=== PATIENT | male | born 1955 | race Caucasian/White ===

== ENCOUNTER 2018-10-30 19:21 | Observation (INO) ==
[2018-10-30] MEDS ORDERED: Isovue-370 500 ML INFUS..BTL IV ONE (20:47)
--- NOTE | 2018-10-30 20:54 | Emergency Department Note ---
Disposition Clinical Impression: Chest pain, Acute pericardial effusion Disposition: Admitted As Inpatient Condition: Undetermined Time of Disposition: 22:52 Chest Pain HPI - General Chief Complaint: ED Chest Pain Stated Complaint: chest pain Time Seen by Provider: 10/30/18 20:16 Source: patient Mode of arrival: ambulatory Limitations: no limitations Vital Signs Reviewed: Yes Nursing Notes Reviewed: Yes - History of Present Illness HPI Narrative: 63-year-old male with history of hypertension, arrives to the emergency department with complaint of chest pain. He describes as a pleuritic in nature chest pain really short of breath. He states it started suddenly at noon. He states that anytime he moves he comes complaining of left-sided chest discomfort. Radiates into bilateral shoulders as well. The patient has no previous history of COPD. Patient is complaining of unilateral leg swelling in the left lower extremity secondary to injury to the left leg. He is unsure what the injury was. He states that his progressively worsened with the swelling is roughly every. No previous history of DVT or PE. No hemoptysis. No other complaints at this time. Severity scale (1-10): 9 - Related Data Home Medications Medication Instructions Recorded Confirmed Clopidogrel Bisulfate [Plavix] 75 mg PO DAILY 05/08/17 05/21/18 Empagliflozin/Linagliptin 1 tab PO DAILY 05/08/17 05/21/18 [Glyxambi 25 mg-5 mg Tablet] Glimepiride [Amaryl] 4 mg PO DAILY 05/08/17 05/21/18 Metformin HCl [Metformin HCl ER] 500 mg PO DAILY 05/08/17 05/21/18 Metoprolol Succinate 50 mg PO DAILY 05/08/17 05/21/18 Rosuvastatin Calcium [Crestor] 40 mg PO DAILY 05/08/17 05/21/18 Sildenafil Citrate [Revatio] 20 mg PO DAILY PRN 05/08/17 05/21/18 Loperamide [Imodium] 2 mg PO BID PRN 10/13/17 05/21/18 Previous Rx's Medication Instructions Recorded Tamsulosin [Flomax] 0.4 mg PO BID PRN 30 Days #60 05/21/18 capsule Allergies Allergy/AdvReac Type Severity Reaction Status Date / Time No Known Allergies Allergy Verified 05/21/18 14:00 All systems ED: reviewed and negative except as stated. Constitutional: Denies: fever, chills, weakness ENT ED: Denies: dysphagia Cardiovascular: Reports: chest pain, dyspnea on exertion, edema (LLE). Denies: orthopnea Respiratory: Reports: dyspnea. Denies: cough, wheezes, sputum production Gastrointestinal: Denies: abdominal pain, nausea, vomiting Genitourinary: Denies: urgency, dysuria Musculoskeletal: Denies: back pain Integumentary: Denies: rash Neurological: Denies: headache Chest Pain PMH - Past Medical History Medical history: Reports: CVA, hyperlipidemia Surgical history: Reports: non-contributory - Social History Smoking Status: Current every day smoker Alcohol use: Reports: rarely Drug use: Reports: none Physical Exam - General Limitations: no limitations General appearance: alert, in distress (secondary to chest pain and mild respiratory distress) - Head Head exam: atraumatic, normocephalic, normal inspection - Eye Eye exam: Present: normal appearance, PERRL, EOMI - ENT ENT exam: normal exam, normal oropharynx, mucous membranes moist - Neck Neck exam: Present: normal inspection, full ROM, trachea midline - Chest Chest inspection: Present: normal inspection, symmetric chest wall rise - Respiratory Respiratory exam: Present: other (Poor air movement in bilateral lung love) - Cardiovascular Cardiovascular exam: Present: regular rate, normal rhythm, normal heart sounds - Abdominal Exam Abdominal exam: Present: soft, Non-Tender. Absent: tenderness, distention, guarding, rebound, rigidity - Extremities Exam Extremities exam: Present: full ROM, tenderness (LLE), other (Swelling noted in left lower extremity. Tenderness to palpation. Roughly double the size of right lower extremity. Patient has a small abrasion to left medial calf.) - Neurological Exam Neurological exam: Present: alert, oriented X3, CN II-XII intact - Skin Skin exam: Present: warm, dry, intact, normal color Course Vital Signs Temperature 98.8 F 10/30/18 19:25 Pulse Rate 98 10/30/18 19:25 Respiratory Rate 20 10/30/18 19:25 Blood Pressure 127/78 10/30/18 19:25 O2 Sat by Pulse Oximetry 94 10/30/18 19:25 Temperature 98.8 F 10/30/18 19:25 Pulse Rate 90 10/30/18 20:56 Respiratory Rate 22 10/30/18 20:56 Blood Pressure 114/68 10/30/18 20:56 O2 Sat by Pulse Oximetry 91 10/30/18 20:56 Oxygen Delivery Oxygen Delivery Room Air Chest Pain - MDM Narrative Medical decision making narrative: Patient's evaluation in the emergency department demonstrates findings consistent with a small moderate-sized pericardial effusion. The patient given streets no tendon on on CTA. The patient's vital signs rate stable. The patient's pain has been difficult to control initially in the emergency Depa rtment we will admit the patient to the hospital for further workup and care to include likely echocardiogram and evaluation for cardiology. Cardiology consultation was placed with Erik by myself. The patient will be admitted to the hospital. Patient agrees to plan of care. No further questions or concerns noted at this time. - Lab Data Lab results reviewed: Yes I reviewed the patient's lab results. Result diagrams: 10/30/18 20:52 10/30/18 20:52 Lab Results 10/30/18 10/30/18 10/30/18 Range/Units 20:52 20:52 20:52 WBC 15.2 H (4.3-11.1) K/mcL RBC 4.51 (4.19-5.50) M/mcL Hgb 13.6 (12.9-16.9) g/dL Hct 41.3 (37.5-50.1) % MCV 91.6 (83.0-100.0) fL MCH 30.2 (28.0-33.3) pg MCHC 32.9 (31.6-35.5) g/dL RDW 14.6 H (11.5-14.5) % Plt Count 211 (140-400) K/mcL MPV 10.5 (9.4-12.4) fL Immature Gran % 0.3 (0-4) % Seg Neutrophils % 79.1 % Lymphocytes % 10.8 % Monocytes % 8.8 % Eosinophils % 0.5 % Basophils % 0.5 % Neutrophils # 12.0 H (1.6-8.9) K/mcL Lymphocytes # 1.6 (0.6-4.6) K/mcL Monocytes # 1.3 (0.0-1.3) K/mcL Eosinophils # 0.1 (0.0-0.6) K/mcL Basophils # 0.1 (0.0-0.2) K/mcL PT 11.3 (9.4-12.1) Seconds INR 1.0 APTT 29.4 (26.0-36.0) Seconds Sodium 134 L (136-145) mEq/L Potassium 4.3 (3.5-5.1) mEq/L Chloride 104 (98-107) mEq/L Carbon Dioxide 22 L (23-29) mEq/L BUN 23 (8-23) mg/dL Creatinine 1.02 (0.70-1.30) mg/dL Est GFR ( Amer) > 60 (> 60) Est GFR (Non-Af Amer) > 60 (> 60) BUN/Creatinine Ratio 23 (6-26) Glucose 135 H (70-105) mg/dL Calculated Osmolality 284 (280-300) Calcium 9.9 (8.6-10.3) mg/dL Troponin I < 0.03 (< 0.04) ng/mL - Radiology Data Radiology results reviewed: Yes I reviewed the patient's radiology results. Chest X-Ray 10/30/18 20:16 IMPRESSION: No acute process. D/ / Ramiro Viera MD / Ramiro Viera MD Interpreting Provider: Ramiro Viera MD Chest CTA 10/30/18 20:47 IMPRESSION: 1. No evidence of pulmonary embolism. 2. Small to moderate-sized pericardial effusion. 3. Coronary artery atherosclerotic vascular disease. 4. Moderate atherosclerotic vascular disease of the descending thoracic aorta. D/ / Sai Roe MD / Sai Roe MD Interpreting Provider: Sai Roe MD - EKG Data EKG attestation: Yes I reviewed and interpreted this EKG. EKG results narrative: Heart rate 95 beats for minute. Normal sinus rhythm. No ST elevation or ST depression noted. Right bundle branch block that is similar in EKG morphology to EKG from 04/09/2015. No acute changes noted. Attestation Statement - Attestation Attestation: Phillip Hodges, examined this patient and my medical decision-making was reviewed with the E [employer]/PA/Advanced Practice Nurse/Resident Physician. I agree with the documented findings, disposition and treatment plan as described except to the extent set forth below. 63-year-old male presents emergency Department with concerns of chest pain. Chest pain is been present over the past 7 hours prior to arrival. Patient s tates his chest pain is left-sided, radiates to his bilateral shoulders. He denies fever, chills, nausea, vomiting. It started acutely pain is pleuritic in nature. CT of the chest showed no PE however it did show a pleural effusion. Laboratory evaluation showed a mild leukocytosis but otherwise did not show significant abnormality. Patient comfortable with the plan for admission to the hospital for further care and evaluation and investigation into his pleural effusion and acute onset chest pain.
[2018-10-30 21:16] LABS: Basophils # 0.1 K/mcL (0.0-0.2); Basophils % 0.5 %; Eosinophils # 0.1 K/mcL (0.0-0.6); Eosinophils % 0.5 %; Hematocrit 41.3 % (37.5-50.1); Hemoglobin 13.6 g/dL (12.9-16.9); Immature Granulocytes % 0.3 % (0-4); Lymphocytes # 1.6 K/mcL (0.6-4.6); Lymphocytes % 10.8 %; Mean Corpuscular HGB Conc 32.9 g/dL (31.6-35.5); Mean Corpuscular Hemoglobin 30.2 pg (28.0-33.3); Mean Corpuscular Volume 91.6 fL (83.0-100.0); Mean Platelet Volume 10.5 fL (9.4-12.4); Monocytes # 1.3 K/mcL (0.0-1.3); Monocytes % 8.8 %; Platelet Count 211 K/mcL (140-400); Red Blood Count 4.51 M/mcL (4.19-5.50); Red Cell Distribution Width 14.6 % (11.5-14.5); Segmented Neutrophils % 79.1 %
[2018-10-30 21:23] LABS: Prothrombin Time 11.3 Seconds (9.4-12.1)
[2018-10-30 21:26] LABS: Activated Partial Thrombo Time 29.4 Seconds (26.0-36.0)
[2018-10-30] MEDS ORDERED: *HR* FentaNYL (PF) 100 MCG/2 ML VIAL IVP ONE (21:34)
[2018-10-30] MEDS ORDERED: Nitroglycerin 0.4 MG TAB.SUBL SL PRN (21:34)
[2018-10-30 21:38] LABS: BUN/Creatinine Ratio 23 (6-26); Blood Urea Nitrogen 23 mg/dL (8-23); Calcium 9.9 mg/dL (8.6-10.3); Carbon Dioxide 22 mEq/L (23-29); Chloride 104 mEq/L (98-107); Glucose 135 mg/dL (70-105); Osmolality,Calculated 284 (280-300); Potassium 4.3 mEq/L (3.5-5.1); Sodium 134 mEq/L (136-145); Troponin I < 0.03 ng/mL (< 0.04); eGFR For Non-African Americans > 60 (> 60)
[2018-10-30] MEDS ORDERED: Aspirin 325 MG TABLET PO ONE (22:42)
--- NOTE | 2018-10-30 23:30 | Internal Med History&Physical ---
<Eli Elizabeth - Last Filed: 10/31/18 05:31> Date of Encounter: 10/31/18 Time of Encounter: 23:19 Internal Medicine - H&P: HPI Chief complaint: chest pain Admitted From: Home Plans for Post Hospital Care: Home History of present illness: Mr. Shultz is a 63 year old male with past medical history CVA, hyperlipidemia, diabetes mellitus, and prostate cancer who presents to the emergency department with complaints of chest pain 1 day. His chest pain began suddenly around noon on day of presentation. Chest pain is centrally located and radiates through his back to both shoulders. He has never experienced this type of chest pain in the past, describes it as feeling like somebody is "beating on" him. Admits to dyspnea.Chest pain is pleuritic and worse with coughing, there is some relief when sitting upright as opposed to reclined position. He denies previous history of heart attack or left heart catheterization. He denies constitutional symptoms or recent viral-like respiratory illness. He has a cough at baseline and is unchanged. He denies heart palpitations, nausea, vomiting, abdominal pain, diarrhea, constipation, difficulty urinating. On arrival to the ED the patient was afebrile, hemodynamically stable, with respiratory rate of 20 and saturating 94% on room air. Initial lab work notable for WBC 15.2 and negative troponin 1. Chest x-ray negative for acute focal process, no effusion or pneumothorax. Chest CTA showed small to moderate sized pericardial effusion, negative for evidence of pulmonary embolism. While in the emergency department he received aspirin 325 mg 1. Per ED report, cardiology has been consulted. The patient has been admitted to the hospitalist service for further evaluation and management. Past Med Surg Social Fam HX - Past Medical History Medical history: CVA, hyperlipidemia - Past Surgical History Surgical History: non-contributory - Social History Smoking Status: Current every day smoker Smokeless Tobacco Status: No Alcohol use: rarely Drug use: none Internal Medicine - H&P: Meds Clopidogrel Bisulfate [Plavix] 75 mg PO DAILY 05/08/17 [History] Empagliflozin/Linagliptin [Glyxambi 25 mg-5 mg Tablet] 1 tab PO DAILY 05/08/17 [History] Glimepiride [Amaryl] 4 mg PO DAILY 05/08/17 [History] Metformin HCl [Metformin HCl ER] 500 mg PO DAILY 05/08/17 [History] Metoprolol Succinate 50 mg PO DAILY 05/08/17 [History] Rosuvastatin Calcium [Crestor] 40 mg PO DAILY 05/08/17 [History] Sildenafil Citrate [Revatio] 20 mg PO DAILY PRN 05/08/17 [History] Loperamide [Imodium] 2 mg PO BID PRN 10/13/17 [History] Tamsulosin [Flomax] 0.4 mg PO BID PRN 30 Days #60 capsule 05/21/18 [Rx] Allergy/AdvReac Type Severity Reaction Status Date / Time No Known Allergies Allergy Verified 05/21/18 14:00 All Systems PM: A 10-system review of systems was performed and is negative for pertinent findings except as documented above in the HPI. - Constitutional Constitutional: no chills, no fever(s) - EENT Nose, mouth and throat: no nasal discharge, no sore throat - Cardiovascular Cardiovascular ROS IM: chest pain, dyspnea, edema (LLE, chronic d/t injury), no irregular heart rhythm, no palpitations - Respiratory Respiratory: cough, dyspnea, pain on inspiration, pain with cough, no hemoptysis, no wheezing, no chest congestion - Gastrointestinal Gastrointestinal: no abdominal pain, no constipation, no diarrhea, no nausea, no vomiting - Genitourinary Genitourinary ROS male: no difficulty urinating, no dysuria - Constitutional Vitals: Temp Pulse Resp BP Pulse Ox 98.8 F 96 20 115/74 94 10/30/18 19:25 10/30/18 23:07 10/30/18 23:07 10/30/18 23:07 10/30/18 23:07 General appearance: Present: mild distress, A&O X 3, pleasant, answers questions appropriately Exam: . - Head Head exam: Present: atraumatic, normocephalic - Eye Eye exam: Present: EOMI, PERRL, sclera anicteric Pupils: Present: PERRL - Neck Neck exam general surgery: Present: supple, trachea midline - Respiratory Respiratory exam: Present: decreased breath sounds, rales (bibasilar), tachypnea. Absent: chest wall tenderness, rhonchi, wheezes Additional comments: mild conversational dyspnea - Cardiovascular Cardiovascular exam: Present: distant heart sounds, RRR, +S1, +S2 Additional comments: no friction rub auscultated - GI/Abdominal GI/Abdominal exam: Present: normal bowel sounds, soft. Absent: tenderness - Extremities Exam Extremities exam: Present: warm. Absent: calf tenderness, cyanotic, tenderness Additional comments: Chronic LLE edema, non-pitting - Neurological Exam Neurological exam: Present: alert, CN II-XII intact, oriented X3, no focal deficits - Skin Skin exam: Present: dry, intact, warm Internal Med - H&P Results - Labs CBC & Chem 7: 10/31/18 03:06 10/31/18 03:06 Labs: Short CBC 10/30/18 Range/Units 20:52 WBC 15.2 H (4.3-11.1) K/mcL Hgb 13.6 (12.9-16.9) g/dL Hct 41.3 (37.5-50.1) % Plt Count 211 (140-400) K/mcL Neutrophils # 12.0 H (1.6-8.9) K/mcL BMP 10/30/18 20:52 Sodium 134 L Potassium 4.3 Chloride 104 Carbon Dioxide 22 L BUN 23 Creatinine 1.02 Glucose 135 H Calcium 9.9 Cardiac Enzymes 10/30/18 Range/Units 20:52 Troponin I < 0.03 (< 0.04) ng/mL - Impressions ITS Impressions Chest X-Ray 10/30/18 20:16 IMPRESSION: No acute process. D/ / Ramiro Viera MD / Ramiro Viera MD Interpreting Provider: Ramiro Viera MD Chest CTA 10/30/18 20:47 IMPRESSION: 1. No evidence of pulmonary embolism. 2. Small to moderate-sized pericardial effusion. 3. Coronary artery atherosclerotic vascular disease. 4. Moderate atherosclerotic vascular disease of the descending thoracic aorta. D/ / Sai Roe MD / Sai Roe MD Interpreting Provider: Sai Roe MD - Assessment and plan (1) Acute pericardial effusion Current Visit: Yes Status: Acute Assessment and plan: Hemodynamically stable Etiology: Unclear, possibly related to known malignancy Chest CTA showed small to moderate sized pericardial effusion, no evidence for pulmonary embolism or pleural effusion Cardiology consult placed by ED Echocardiogram pending Continuous cardiac monitoring Cardiology recommendations appreciated (2) Chest pain Current Visit: Yes Status: Acute Assessment and plan: Most likely due to acute pericardial effusion as above Received 325 mg ASA on arrival CTA chest findings as above CXR shows no acute cardiopulmonary processes Morphine 2 mg Q4H PRN Initial troponin negative, will trend 2 Continuous cardiac monitoring Anticipate chest pain will improve with treatment of the pericardial effusion Qualifiers: Chest pain type: chest pain on breathing Qualified Code(s): R07.1 - Chest pain on breathing; R07.81 - Pleurodynia (3) Leukocytosis Current Visit: Yes Status: Acute Assessment and plan: WBC 15.2 Suspect d/t acute stress reaction secondary to acute pericardial effusion Afebrile, no obvious or suspected source of infection Monitor with morning CBC Qualifiers: Leukocytosis type: unspecified Qualified Code(s): D72.829 - Elevated white blood cell count, unspecified (4) Hyperlipidemia Current Visit: Yes Status: Acute Assessment and plan: Continue home dose Crestor Qualifiers: Hyperlipidemia type: unspecified Qualified Code(s): E78.5 - Hyperlipidemia, unspecified (5) Diabetes mellitus Current Visit: Yes Status: Acute Assessment and plan: Low dose sliding scale insulin Diabetic diet Qualifiers: Diabetes mellitus type: type 2 Diabetes mellitus custodial insulin use: without custodial use Diabetes mellitus complication status: with neurologic complications Diabetes mellitus complication detail: with unspecified neuropathy Qualified Code(s): E11.40 - Type 2 diabetes mellitus with diabetic neuropathy, unspecified (6) Tobacco abuse Current Visit: Yes Status: Acute Assessment and plan: Current tobacco smoker Cessation strongly advised (7) Prostate cancer Current Visit: No Status: Acute Assessment and plan: Very high risk stage II prostate adenocarcinoma--radiation therapy completed 2016; docetaxel completed January 2018; currently receiving Lupron injections Followed by Dr. Stevens and Dr. Duff at the [facility] Continue management as outpatient (8) DVT prophylaxis Current Visit: Yes Status: Acute Assessment and plan: subcutaneous heparin - Time Spent With Patient Total time spent is greater than 50% in coordination of care (as documented) at patient's floor/unit and/or counseling patient: <Renae Pelaez - Last Filed: 10/31/18 08:23> Date of Encounter: 10/30/18 Internal Medicine - H&P: HPI History of present illness: Mr. Shultz is a 63 year old male All Systems PM: A 10-system review of systems was performed and is negative for pertinent findings except as documented above in the HPI. - Constitutional Vitals: Temp Pulse Resp BP Pulse Ox 98.1 F 89 19 119/77 93 10/31/18 07:55 10/31/18 07:55 10/31/18 07:55 10/31/18 07:55 10/31/18 07:55 Internal Med - H&P Results - Labs CBC & Chem 7: 10/31/18 03:06 10/31/18 03:06 Labs: Short CBC 10/30/18 10/31/18 Range/Units 20:52 03:06 WBC 15.2 H 12.1 H (4.3-11.1) K/mcL Hgb 13.6 12.5 L (12.9-16.9) g/dL Hct 41.3 38.9 (37.5-50.1) % Plt Count 211 193 (140-400) K/mcL Neutrophils # 12.0 H 8.9 (1.6-8.9) K/mcL BMP 10/30/18 10/31/18 20:52 03:06 Sodium 134 L 134 L Potassium 4.3 4.5 Chloride 104 105 Carbon Dioxide 22 L 22 L BUN 23 21 Creatinine 1.02 1.05 Glucose 135 H 133 H Calcium 9.9 9.9 Cardiac Enzymes 10/30/18 10/31/18 Range/Units 20:52 03:06 Troponin I < 0.03 < 0.03 (< 0.04) ng/mL - Impressions ITS Impressions Chest X-Ray 10/30/18 20:16 IMPRESSION: No acute process. D/ / Ramiro Viera MD / Ramiro Viera MD Interpreting Provider: Ramiro Viera MD Chest CTA 10/30/18 20:47 IMPRESSION: 1. No evidence of pulmonary embolism. 2. Small to moderate-sized pericardial effusion. 3. Coronary artery atherosclerotic vascular disease. 4. Moderate atherosclerotic vascular disease of the descending thoracic aorta. D/ / Sai Roe MD / Sai Roe MD Interpreting Provider: Sai Roe MD - Time Spent With Patient Total time spent is greater than 50% in coordination of care (as documented) at patient's floor/unit and/or counseling patient: - Attending Attestation I performed a history and physical examination of the patient and discussed his management with the resident. I reviewed the resident's note and agree with the assessment and plan of care.
[2018-10-30] MEDS ORDERED: Naloxone 0.4 MG/ML INJ IVP PRN (23:33)
[2018-10-30] MEDS ORDERED: Dextrose Gel 15 GM/37.5 ML TUBE PO PRN ×2 (23:37)
[2018-10-30] MEDS ORDERED: *HR* Dextrose 50 % in Water (Syg) 50 ML SYRINGE IVP PRN (23:37)
[2018-10-30] MEDS ORDERED: D5% in Water 1,000 ML IVC PRN (23:37)
[2018-10-31] MEDS ORDERED: Ipratropium/Albuterol Neb 3 ML IH PRN (00:39)
[2018-10-31] MEDS ORDERED: *HR* Morphine 2 MG/ML SYRINGE IVP PRN (01:38)
[2018-10-31 03:36] LABS: Basophils # 0.1 K/mcL (0.0-0.2); Basophils % 0.4 %; Eosinophils % 0.2 %; Hematocrit 38.9 % (37.5-50.1); Hemoglobin 12.5 g/dL (12.9-16.9); Immature Granulocytes % 0.5 % (0-4); Lymphocytes # 1.8 K/mcL (0.6-4.6); Lymphocytes % 14.5 %; Mean Corpuscular HGB Conc 32.1 g/dL (31.6-35.5); Mean Corpuscular Hemoglobin 29.6 pg (28.0-33.3); Mean Corpuscular Volume 92.2 fL (83.0-100.0); Mean Platelet Volume 10.5 fL (9.4-12.4); Monocytes # 1.3 K/mcL (0.0-1.3); Neutrophils # 8.9 K/mcL (1.6-8.9); Platelet Count 193 K/mcL (140-400); Red Blood Count 4.22 M/mcL (4.19-5.50); Red Cell Distribution Width 14.7 % (11.5-14.5); Segmented Neutrophils % 73.4 %
[2018-10-31] MEDS ORDERED: Furosemide 20 MG/2 ML VIAL IVP ONE (03:43)
[2018-10-31 03:51] LABS: BUN/Creatinine Ratio 20 (6-26); Blood Urea Nitrogen 21 mg/dL (8-23); Calcium 9.9 mg/dL (8.6-10.3); Carbon Dioxide 22 mEq/L (23-29); Chloride 105 mEq/L (98-107); Glucose 133 mg/dL (70-105); Osmolality,Calculated 283 (280-300); Potassium 4.5 mEq/L (3.5-5.1); Sodium 134 mEq/L (136-145); eGFR For Non-African Americans > 60 (> 60)
[2018-10-31] MEDS: *HR* Heparin 5,000 UNIT/ML VIAL SQ SCH ×2 (04:52→17:18)
[2018-10-31] MEDS: Insulin LISPRO 300 UNITS/3 ML VIAL SQ SCH ×3 (08:05→17:12)
[2018-10-31] MEDS: Metoprolol XL (24 HR) Succ 25 MG TAB.ER.24H PO SCH (08:19)
--- NOTE | 2018-10-31 09:52 | Internal Med Progress Note ---
Hospitalist Progress Note - Encounter Date of Encounter: 10/31/18 Time of Encounter: 09:51 - Subjective Interval History: Seen and examined at bedside- Complains of sharp CP when sitting up and coughing - does not appear to be in any resp distress - Exam Vitals: Temp Pulse Resp BP Pulse Ox 98.1 F 89 19 119/77 94 10/31/18 07:55 10/31/18 07:55 10/31/18 07:55 10/31/18 07:55 10/31/18 08:19 Exam: General: Alert and oriented 3 lying in bed in no acute distress Skin:Normal color, no rash, no lesions. HEENT:EOM, pupils equal, round and reactive. Cardiovascular:Normal S1 & S2, no rubs, murmurs or gallops. No JVD. Pulse regular. Lungs: Diffuse Rhonchi appreciated Abdomen:Soft, non-tender, no rigidity. Extremities: 2+ pitting edema up to the ankles bilaterally Neurological:Normal cognition and motor skills. Pulses:Carotid and radial pulses normal +2. 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 - trop negative x3 EKG with no ST T wave abnormality Cardiology consulted NSAIDs for pain Incentive spirometry (3) DVT prophylaxis Current Visit: Yes Status: Acute (4) Diabetes mellitus Current Visit: Yes Status: Acute Assessment and Plan: 1 accucheck AC/HS SSI (5) Prostate cancer Current Visit: No Status: Chronic Assessment and Plan: Oncology as outpatient - consult as needed - Time Spent with Patient Total time spent is greater than 50% in coordination of care (as documented) at patient's floor/unit and/or counseling patient: Internal Medicine: Result - Labs CBC & Chem 7: 10/31/18 03:06 10/31/18 03:06 Labs: Short CBC 10/30/18 10/31/18 Range/Units 20:52 03:06 WBC 15.2 H 12.1 H (4.3-11.1) K/mcL Hgb 13.6 12.5 L (12.9-16.9) g/dL Hct 41.3 38.9 (37.5-50.1) % Plt Count 211 193 (140-400) K/mcL Neutrophils # 12.0 H 8.9 (1.6-8.9) K/mcL BMP 10/30/18 10/31/18 20:52 03:06 Sodium 134 L 134 L Potassium 4.3 4.5 Chloride 104 105 Carbon Dioxide 22 L 22 L BUN 23 21 Creatinine 1.02 1.05 Glucose 135 H 133 H Calcium 9.9 9.9 Cardiac Enzymes 10/30/18 10/31/18 10/31/18 Range/Units 20:52 03:06 08:16 Troponin I < 0.03 < 0.03 < 0.03 (< 0.04) ng/mL - ABG Interpretation ABG results: PT/INR, D-dimer PT 11.3 Seconds (9.4-12.1) 10/30/18 20:52 - Impressions Impressions Chest X-Ray 10/30/18 20:16 IMPRESSION: No acute process. D/ / Ramiro Viera MD / Ramiro Viera MD Interpreting Provider: Ramiro Viera MD Chest CTA 10/30/18 20:47 IMPRESSION: 1. No evidence of pulmonary embolism. 2. Small to moderate-sized pericardial effusion. 3. Coronary artery atherosclerotic vascular disease. 4. Moderate atherosclerotic vascular disease of the descending thoracic aorta. 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
--- NOTE | 2018-10-31 11:34 | Cardiology Consult Note ---
Date of Encounter: 10/31/18 Time of Encounter: 11:32 Assessment and Plan (1) Chest pain Current Visit: Yes Status: Acute Chest pain most consistent with musculoskeletal etiology, reproducible, initiated during physical exertion at work, pt is at low cardiovascular risk for hospital discharge. Qualifiers: Chest pain type: intercostal pain Qualified Code(s): R07.82 - Intercostal pain (2) Acute pericardial effusion Current Visit: Yes Status: Acute not hemodynamically siginificant, does not appear to be contributing to chest discomfort, would continue to observe, follow in our office in two to three weeks with repeat echo at that time. (3) Prostate cancer Current Visit: No Status: Chronic Has completed tx., following with Heme onc. (4) Tobacco abuse Current Visit: Yes Status: Acute strongly encourage smoking cessation. Discussion w patient/family: The assessment and plan as outlined above was discussed with the patient and/or family members who expressed understanding and agreement. All questions were answered. Thank you for involving us in the care of your patient. Please call with any questions. History of Present Illness Consult date: 10/31/18 Requesting physician: Renae Pelaez Consult reason: Chest pain Chief complaint: chest pain History of present illness: Mr. Shultz is a 63 year old male who presented to the ER with complaints of sharp, stabbing chest pain, under left breast, starting after replacing water pump in cement truck, started with mild discomfort with movement, rapidly progressed to severe 8/10 sharp stabbing pain, worse with movement, deep inspiration and cough. Pain was not associated with shortness of breath, nausea or diaphoresis. He could control the pain by holding his breath. He has had some improvement since admission. He underwent CT scan to evaluate for PE, found to have a pericardial effusion on CT. He denies symptoms of recent upper respiratory tract infection, blunt trauma, or febrile illness, He has recently completed chemo tx for prostate cancer. 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 Past Med Surg Social Fam HX - Past Medical History Medical history: CVA, hyperlipidemia Psychiatric history: no psych history - Past Surgical History Surgical History: non-contributory - Social History Smoking Status: Current every day smoker Smokeless Tobacco Status: No Alcohol use: rarely Drug use: none Medications and Allergies Clopidogrel Bisulfate [Plavix] 75 mg PO DAILY 05/08/17 [History] Empagliflozin/Linagliptin [Glyxambi 25 mg-5 mg Tablet] 1 tab PO DAILY 05/08/17 [History] Glimepiride [Amaryl] 4 mg PO DAILY 05/08/17 [History] Metformin HCl [Metformin HCl ER] 500 mg PO DAILY 05/08/17 [History] Metoprolol Succinate 50 mg PO DAILY 05/08/17 [History] Rosuvastatin Calcium [Crestor] 40 mg PO DAILY 05/08/17 [History] Sildenafil Citrate [Revatio] 20 mg PO DAILY PRN 05/08/17 [History] Loperamide [Imodium] 2 mg PO BID PRN 10/13/17 [History] Tamsulosin [Flomax] 0.4 mg PO BID PRN 30 Days #60 capsule 05/21/18 [Rx] Allergy/AdvReac Type Severity Reaction Status Date / Time No Known Allergies Allergy Verified 05/21/18 14:00 All Systems Review: The remainder of the systems were reviewed and are negative - Constitutional Constitutional: anorexia, fatigue, lethargy - Cardiovascular Cardiovascular: chest pain with exertion, dyspnea on exertion, lightheadedness, palpitations - Respiratory Respiratory: cough, dyspnea - Gastrointestinal Gastrointestinal: nausea - Genitourinary Genitourinary: nocturia Physical Examination Vital Signs, Last 4 Hours Temp Pulse Resp BP Pulse Ox 10/31/18 08:19 94 10/31/18 07:55 98.1 F 89 19 119/77 93 General: Conversant HEENT: Atraumatic, Normocephaly Neck: No JVD Cardiac: Reg Rate and Rhythm, Normal S1 and S2, No Murmur, Other (no clicks, rubs or rumbles. ) Lungs: Other (Breath sounds decreased with course scattered rhonchi, ) Results 10/31/18 03:06 10/31/18 03:06 Lab Results 10/30/18 10/30/18 10/30/18 20:52 20:52 20:52 WBC 15.2 H Hgb 13.6 Hct 41.3 Plt Count 211 INR 1.0 APTT 29.4 Sodium 134 L Potassium 4.3 Chloride 104 Carbon Dioxide 22 L BUN 23 Creatinine 1.02 Glucose 135 H Calcium 9.9 Troponin I < 0.03 B-Natriuretic Peptide 10/31/18 10/31/18 10/31/18 03:06 03:06 03:06 WBC 12.1 H Hgb 12.5 L Hct 38.9 Plt Count 193 INR APTT Sodium 134 L Potassium 4.5 Chloride 105 Carbon Dioxide 22 L BUN 21 Creatinine 1.05 Glucose 133 H Calcium 9.9 Troponin I < 0.03 B-Natriuretic Peptide 10/31/18 10/31/18 03:06 08:16 WBC Hgb Hct Plt Count INR APTT Sodium Potassium Chloride Carbon Dioxide BUN Creatinine Glucose Calcium Troponin I < 0.03 B-Natriuretic Peptide 26 - EKG Interpretation EKG results cardiology: personally reviewed Consult Discharge Plan - Plan Referrals: Rafat Dietz Jr, MD [Primary Care Provider] -
[2018-10-31] MEDS: Ibuprofen 600 MG TABLET PO SCH (17:19)
[2018-10-31] MEDS ORDERED: Insulin LISPRO 300 UNITS/3 ML VIAL SQ SCH (21:00)
[2018-11-01] MEDS: Ibuprofen 600 MG TABLET PO SCH ×2 (00:33→08:52)
[2018-11-01] MEDS: *HR* Heparin 5,000 UNIT/ML VIAL SQ SCH (06:28)
[2018-11-01 06:57] LABS: Basophils # 0.1 K/mcL (0.0-0.2); Basophils % 0.6 %; Eosinophils # 0.2 K/mcL (0.0-0.6); Hematocrit 39.1 % (37.5-50.1); Hemoglobin 12.4 g/dL (12.9-16.9); Immature Granulocytes % 0.4 % (0-4); Lymphocytes # 1.4 K/mcL (0.6-4.6); Lymphocytes % 13.1 %; Mean Corpuscular HGB Conc 31.7 g/dL (31.6-35.5); Mean Corpuscular Hemoglobin 29.7 pg (28.0-33.3); Mean Corpuscular Volume 93.8 fL (83.0-100.0); Mean Platelet Volume 10.6 fL (9.4-12.4); Monocytes # 1.2 K/mcL (0.0-1.3); Monocytes % 11.5 %; Neutrophils # 7.5 K/mcL (1.6-8.9); Platelet Count 184 K/mcL (140-400); Red Blood Count 4.17 M/mcL (4.19-5.50); Red Cell Distribution Width 14.6 % (11.5-14.5); Segmented Neutrophils % 72.4 %
[2018-11-01 07:11] LABS: BUN/Creatinine Ratio 20 (6-26); Blood Urea Nitrogen 19 mg/dL (8-23); Calcium 9.5 mg/dL (8.6-10.3); Carbon Dioxide 25 mEq/L (23-29); Chloride 106 mEq/L (98-107); Glucose 113 mg/dL (70-105); Osmolality,Calculated 289 (280-300); Potassium 3.9 mEq/L (3.5-5.1); Sodium 138 mEq/L (136-145); eGFR For Non-African Americans > 60 (> 60)
[2018-11-01] MEDS: Insulin LISPRO 300 UNITS/3 ML VIAL SQ SCH ×2 (08:36→11:15)
[2018-11-01] MEDS: Metoprolol XL (24 HR) Succ 25 MG TAB.ER.24H PO SCH (08:52)
[2018-11-01 10:10] LABS: Adenovirus Not Detected (Not Detect); Bordetella Pertussis Not Detected (Not Detect); Chlamydophila pneumoniae Not Detected (Not Detect); Coronavirus 229E Not Detected (Not Detect); Coronavirus HKU1 Not Detected (Not Detect); Coronavirus NL63 Not Detected (Not Detect); Coronavirus OC43 Not Detected (Not Detect); Human Metapneumovirus Not Detected (Not Detect); Human Rhinovirus/Enterovirus Not Detected (Not Detect); Influenza A Subtype 2009 H1 Not Detected (Not Detect); Influenza A Untypeable Not Detected (Not Detect); Influenza B Not Detected (Not Detect); Mycoplasma pneumoniae Not Detected (Not Detect); Parainfluenza Virus 1 Not Detected (Not Detect); Parainfluenza Virus 2 Not Detected (Not Detect); Parainfluenza Virus 3 Not Detected (Not Detect); Parainfluenza Virus 4 Not Detected (Not Detect); Respiratory Syncytial Virus Not Detected (Not Detect)
[2018-11-01 10:36] VITALS: BP 128/74
--- NOTE | 2018-11-01 13:58 | Discharge Summary ---
- NOTES TO OUTPATIENT PROVIDER Notes to Outpatient Provider: Presnetd with CP - consistent with musculoskeletal etiology - pericardial effusion followup with cardiology in 3 weeks for repeat echo Orders not resulted at time of discharge: Pending orders 10/30/18 19:32 EKG [ECG 12 lead ECG] [ECG] Stat Date of Encounter: 11/01/18 Time of Encounter: 13:53 - Discharge Diagnosis (1) Acute pericardial effusion Priority: Primary Status: Acute (2) Chest pain Priority: Primary Status: Acute Qualifiers: Chest pain type: intercostal pain Qualified Code(s): R07.82 - Intercostal pain (3) Diabetes mellitus Priority: Secondary Status: Acute Qualifiers: Diabetes mellitus type: type 2 Diabetes mellitus long-term insulin use: without long-term use Diabetes mellitus complication status: with neurologic complications Diabetes mellitus complication detail: with unspecified neuropathy Qualified Code(s): E11.40 - Type 2 diabetes mellitus with diabetic neuropathy, unspecified (4) Prostate cancer Priority: Secondary Status: Chronic Hospital course: Mr. Shultz is a 63 year old male past medical hx of HLD CVA prostrate cancer recently completed chemotherapy current smoker who presented with complaints of sharp stabbing chest pain under left breast, starting after replacing water pump in cement truck, started with mild discomfort with movement, rapidly progressed to severe 8/10 sharp stabbing pain, worse with movement, deep inspiration and cough. No associated sx worse on inspiration and cough. Troponin negative EKG with no ST t wave abnormality underwent CT scan to evaluate for PE, found to have a pericardial effusion on CT. Cardiology consulted - CP most likely muscular skeletal - pericardial effusion not hemodynamically significant Advised to follow up with their office in 3 weeks for repeat echo. He was observed overnight oxygen saturation stable he walked with no drop- Advised to follow up with PCP and cardiology- Hemodynamically stable ready for discharge - Time Spent with Patient Total time spent providing and/or coordinating discharge services: - Discharge Medications Home Medications: Clopidogrel Bisulfate [Plavix] 75 mg PO DAILY 05/08/17 [History] Empagliflozin/Linagliptin [Glyxambi 25 mg-5 mg Tablet] 1 tab PO DAILY 05/08/17 [History] Glimepiride [Amaryl] 4 mg PO DAILY 05/08/17 [History] Metformin HCl [Metformin HCl ER] 500 mg PO DAILY 05/08/17 [History] Metoprolol Succinate 50 mg PO DAILY 05/08/17 [History] Rosuvastatin Calcium [Crestor] 40 mg PO DAILY 05/08/17 [History] Sildenafil Citrate [Revatio] 20 mg PO DAILY PRN 05/08/17 [History] Loperamide [Imodium] 2 mg PO BID PRN 10/13/17 [History] Tamsulosin [Flomax] 0.4 mg PO BID PRN 30 Days #60 capsule 05/21/18 [Rx] Allergies/Adverse Reactions: Allergy/AdvReac Type Severity Reaction Status Date / Time No Known Allergies Allergy Verified 05/21/18 14:00 Date of admission: 10/31/18 00:41 Primary care physician: Rafat Dietz Jr, MD Consults: 10/30/18 22:46 Consult to Cardiology [CONS] Stat Comment: Consulting Provider: Cardiology Elise Reason for Consult: Pericardial effusion Call Completed: No Discharging clinician: Kelle Boudreaux Anticipated date of discharge: 11/01/18 - Constitutional Vitals: Temp Pulse Resp BP Pulse Ox 98.3 F 76 17 128/74 94 11/01/18 10:34 11/01/18 10:34 11/01/18 10:34 11/01/18 10:34 11/01/18 13:10 General appearance: Present: A&O X 3, pleasant, answers questions appropriately Exam: General: Alert and oriented 3 lying in bed in no acute distress Skin:Normal color, no rash, no lesions. HEENT:EOM, pupils equal, round and reactive. Cardiovascular:Normal S1 & S2, no rubs, murmurs or gallops. No JVD. Pulse regular. Lungs: CTA Abdomen:Soft, non-tender, no rigidity. Extremities: no edema Neurological:Normal cognition and motor skills. Pulses:Carotid and radial pulses normal +2. - Head Head exam: Present: atraumatic, normocephalic - Eye Eye exam: Present: PERRL, conjuntiva pink, sclera anicteric Pupils: Present: PERRL - Neck Neck exam general surgery: Present: supple, trachea midline. Absent: lymp hadenopathy - Respiratory Respiratory exam: Present: CTAB. Absent: accessory muscle use, rales, rhonchi, wheezes - Cardiovascular Cardiovascular exam: Present: RRR, +S1, +S2. Absent: diastolic murmur, gallop, rubs, systolic murmur - GI/Abdominal GI/Abdominal exam: Present: normal bowel sounds, soft, no peritoneal signs. Absent: distended, tenderness - Extremities Exam Extremities exam: Present: warm, radial pulses palpable and symmetrical. Absent: calf tenderness, cyanotic, pedal edema - Neurological Exam Neurological exam: Present: CN II-XII intact, oriented X3, no focal deficits. Absent: pronater drift, facial droop, speech deficit - Skin Skin exam: Present: dry, intact - Patient Status Disposition: Home, Self-Care Condition: Good Functional capacity at discharge: independent ambulation Overall status at discharge: patient is back to baseline - Discharge Instructions Instructions: Chest Pain (DC), Diabetes Mellitus Type 2 in Adults (DC) Follow Up With: Rafat Dietz Jr, MD [Primary Care Provider] - - Diet and Activity Activity: increase activity as tolerated Diet: advance to your usual diet
--- NOTE | 2018-11-02 14:35 | Electrocardiograph Report ---
[place] [id number] Test Date: 2018-10-30 Pat Name: Teodoro Shultz Department: 104 Room: [facility] Gender: M [employer] Work[employer]: [place]ON : 1955 Requested By: Abdullahi Portillo Order Number: [id number] Reading MD: Deb Acevedo Measurements Intervals [place] Rate: 95 P: 12 [place]: 132 QRS: 2 QRSD: 145 T: 44 QT: 380 QTc: 433 Interpretive Statements SINUS RHYTHM RIGHT BUNDLE BRANCH BLOCK Electronically Signed On 11-02-2018 14:34:04 EST by Deb Acevedo
== END 2018-11-01 15:07 | disposition home or self-care (01) ==
LOC: 2SOUTHHOLD 19:21 → EMEROOARM 19:21 → 2SOUTHHOLD 10-31 01:10
PROVIDERS: ADMIT Internal Medicine; ATTEND Internal Medicine

== ENCOUNTER 2019-12-14 13:50 | Observation (INO) ==
[2019-12-14] MEDS ORDERED: Isovue-370 500 ML BOTTLE IVP ONE (15:30)
[2019-12-14 15:51] LABS: Basophils # 0.1 K/mcL (0.0-0.2); Basophils % 0.8 %; Eosinophils # 0.2 K/mcL (0.0-0.6); Eosinophils % 1.6 %; Hematocrit 45.4 % (37.5-50.1); Hemoglobin 14.8 g/dL (12.9-16.9); Immature Granulocytes % 0.4 % (0-4); Lymphocytes # 1.5 K/mcL (0.6-4.6); Mean Corpuscular HGB Conc 32.6 g/dL (31.6-35.5); Mean Corpuscular Volume 95.2 fL (83.0-100.0); Mean Platelet Volume 10.8 fL (9.4-12.4); Monocytes # 0.8 K/mcL (0.0-1.3); Monocytes % 7.3 %; Neutrophils # 8.1 K/mcL (1.6-8.9); Platelet Count 212 K/mcL (140-400); Red Blood Count 4.77 M/mcL (4.19-5.50); Red Cell Distribution Width 14.5 % (11.5-14.5); Segmented Neutrophils % 75.9 %; White Blood Count 10.6 K/mcL (4.3-11.1)
[2019-12-14 16:02] LABS: Prothrombin Time 11.4 Seconds (9.4-12.1)
[2019-12-14 16:04] LABS: Activated Partial Thrombo Time 32.5 Seconds (26.0-36.0)
[2019-12-14 16:08] LABS: BUN/Creatinine Ratio 15 (6-26); Blood Urea Nitrogen 20 mg/dL (8-23); Calcium 10.5 mg/dL (8.6-10.3); Carbon Dioxide 25 mEq/L (23-29); Chloride 105 mEq/L (98-107); Glucose 144 mg/dL (70-105); Osmolality,Calculated 299 (280-300); Potassium 4.4 mEq/L (3.5-5.1); Sodium 142 mEq/L (136-145); eGFR For African Americans > 60 (> 60); eGFR For Non-African Americans 54 (> 60)
[2019-12-14] MEDS ORDERED: Lidocaine Jelly 11 ml Syringe TP ONE (16:29)
[2019-12-14 18:02] LABS: Clarity,Urine Clear (Clear); Color,Urine Dark Yellow (Yellow)
[2019-12-14 18:03] LABS: Bilirubin,Urine Negative (Negative); Blood,Urine Large (Negative); Glucose,Urine (UA) Normal (Normal); Ketones,Urine Negative (Negative); Leukocyte Esterase,Urine Negative (Negative); Nitrite,Urine Negative (Negative); PH,Urine 6.5 pH Units (5.0-8.0); Protein,Urine Negative (Neg-Trace); Specific Gravity,Urine 1.013 (1.010-1.025); Urobilinogen,Urine Normal (Normal)
[2019-12-14] MEDS ORDERED: Ondansetron 4 MG/2 ML VIAL IVP PRN (21:15)
[2019-12-14] MEDS ORDERED: Naloxone 0.4 MG/ML INJ IVP PRN (21:15)
[2019-12-14] MEDS ORDERED: Acetaminophen 325 MG TABLET PO PRN (21:15)
[2019-12-14] MEDS ORDERED: D5% in Water 1,000 ML IVC PRN (21:30)
[2019-12-14] MEDS ORDERED: Dextrose Gel 15 GM/37.5 ML TUBE PO PRN ×2 (21:30)
[2019-12-14] MEDS ORDERED: *HR* Dextrose 50 % in Water (Syg) 50 ML SYRINGE IVP PRN (21:30)
[2019-12-14] MEDS: 0.9 % Sodium Chloride 1,000 ML IVC SCH (22:14)
[2019-12-15 06:08] LABS: Basophils # 0.1 K/mcL (0.0-0.2); Basophils % 0.4 %; Eosinophils # 0.2 K/mcL (0.0-0.6); Eosinophils % 1.6 %; Hematocrit 44.6 % (37.5-50.1); Hemoglobin 14.2 g/dL (12.9-16.9); Immature Granulocytes % 0.5 % (0-4); Lymphocytes # 1.7 K/mcL (0.6-4.6); Lymphocytes % 13.8 %; Mean Corpuscular HGB Conc 31.8 g/dL (31.6-35.5); Mean Corpuscular Hemoglobin 30.3 pg (28.0-33.3); Mean Corpuscular Volume 95.1 fL (83.0-100.0); Monocytes # 1.1 K/mcL (0.0-1.3); Monocytes % 8.6 %; Neutrophils # 9.4 K/mcL (1.6-8.9); Platelet Count 196 K/mcL (140-400); Red Blood Count 4.69 M/mcL (4.19-5.50); Red Cell Distribution Width 14.6 % (11.5-14.5); Segmented Neutrophils % 75.1 %; White Blood Count 12.5 K/mcL (4.3-11.1)
[2019-12-15 06:24] LABS: BUN/Creatinine Ratio 17 (6-26); Blood Urea Nitrogen 16 mg/dL (8-23); Calcium 9.3 mg/dL (8.6-10.3); Carbon Dioxide 25 mEq/L (23-29); Chloride 109 mEq/L (98-107); Glucose 103 mg/dL (70-105); Osmolality,Calculated 291 (280-300); Sodium 140 mEq/L (136-145); eGFR For African Americans > 60 (> 60); eGFR For Non-African Americans > 60 (> 60)
[2019-12-15] MEDS ORDERED: Metoprolol XL (24 HR) Succ 25 MG TAB.ER.24H PO SCH (09:00)
[2019-12-15] MEDS: Insulin LISPRO 300 UNITS/3 ML VIAL SQ SCH ×3 (09:08→17:56)
[2019-12-15] MEDS ORDERED: cefTRIAXone 1,000 MG in 0.9 % Sodium Chloride Mini Bag 100 ML IVPB ONE (09:16)
[2019-12-15] MEDS ORDERED: cefTRIAXone 1,000 MG in Water for inj. (sterile) 10 ML IVP ONE (09:42)
[2019-12-15] MEDS: 0.9 % Sodium Chloride 1,000 ML IVC SCH (13:08)
[2019-12-15] MEDS ORDERED: *HR* Succinylcholine 200 MG/10 ML VIAL IVP ONE (16:51)
[2019-12-15] MEDS ORDERED: Lidocaine -MPF 2% 2 ML VIAL ONE (16:51)
[2019-12-15] MEDS ORDERED: *HR* Propofol 200 MG/20 ML VIAL IVP ONE (16:51)
[2019-12-15] MEDS ORDERED: *HR* Midazolam HCl 2 MG/2 ML VIAL ONE (16:51)
[2019-12-15] MEDS ORDERED: *HR* FentaNYL (PF) 100 MCG/2 ML VIAL ONE ×2 (16:51→17:39)
[2019-12-15] MEDS ORDERED: Albuterol 2.5 MG/3 ML NEBULIZER IH ONE (17:02)
[2019-12-15] MEDS ORDERED: *HR* OxyCODONE Immed Rel 5 MG TABLET PO PRN (17:09)
[2019-12-15] MEDS ORDERED: Ondansetron 4 MG/2 ML VIAL IVP ONE (17:09)
[2019-12-15] MEDS ORDERED: Ondansetron 4 MG/2 ML VIAL ONE (17:40)
[2019-12-15] MEDS ORDERED: Dexamethasone 4 MG/ML VIAL ONE (17:40)
[2019-12-15] MEDS ORDERED: *HR* PHENYLEPHRINE 1,000 MCG/10 ML SYRINGE IVP ONE (17:51)
[2019-12-15] MEDS ORDERED: EPHEDrine 50 MG/ML VIAL ONE (17:59)
[2019-12-15] MEDS ORDERED: Ondansetron 4 MG/2 ML VIAL IVP PRN (19:01)
[2019-12-15] MEDS ORDERED: D5% in Water 1,000 ML IVC PRN (19:01)
[2019-12-15] MEDS ORDERED: Naloxone 0.4 MG/ML INJ IVP PRN (19:01)
[2019-12-15] MEDS ORDERED: Dextrose Gel 15 GM/37.5 ML TUBE PO PRN ×2 (19:01)
[2019-12-15] MEDS ORDERED: 0.9 % Sodium Chloride 1,000 ML IVC SCH (19:01)
[2019-12-15] MEDS ORDERED: Acetaminophen 325 MG TABLET PO PRN (19:01)
[2019-12-15] MEDS ORDERED: *HR* Dextrose 50 % in Water (Syg) 50 ML SYRINGE IVP PRN (19:01)
[2019-12-15] MEDS ORDERED: *HR* HYDROcodone/Acet 5/325 mg TABLET PO PRN (19:01)
[2019-12-15] MEDS: Nicotine 21 MG PATCH.TD24 TD SCH (20:39)
[2019-12-15] MEDS ORDERED: Insulin LISPRO 300 UNITS/3 ML VIAL SQ SCH ×2 (21:00)
[2019-12-16 06:04] LABS: Basophils % 0.2 %; Hematocrit 44.9 % (37.5-50.1); Hemoglobin 14.8 g/dL (12.9-16.9); Immature Granulocytes % 0.4 % (0-4); Lymphocytes # 1.5 K/mcL (0.6-4.6); Lymphocytes % 9.2 %; Mean Corpuscular Hemoglobin 31.4 pg (28.0-33.3); Mean Corpuscular Volume 95.3 fL (83.0-100.0); Monocytes # 0.5 K/mcL (0.0-1.3); Neutrophils # 13.9 K/mcL (1.6-8.9); Platelet Count 200 K/mcL (140-400); Red Blood Count 4.71 M/mcL (4.19-5.50); Segmented Neutrophils % 87.2 %; White Blood Count 15.9 K/mcL (4.3-11.1)
[2019-12-16] MEDS ORDERED: Insulin LISPRO 300 UNITS/3 ML VIAL SQ SCH (07:30)
[2019-12-16] MEDS ORDERED: *HR* HYDROcodone/Acet 5/325 mg TABLET PO PRN (08:30)
[2019-12-16] MEDS ORDERED: Metoprolol XL (24 HR) Succ 25 MG TAB.ER.24H PO SCH (09:00)
[2019-12-16] MEDS: Nicotine 21 MG PATCH.TD24 TD SCH (09:17)
[2019-12-16 09:20] LABS: BUN/Creatinine Ratio 22 (6-26); Blood Urea Nitrogen 20 mg/dL (8-23); Calcium 9.3 mg/dL (8.6-10.3); Carbon Dioxide 22 mEq/L (23-29); Chloride 106 mEq/L (98-107); Glucose 179 mg/dL (70-105); Osmolality,Calculated 293 (280-300); Potassium 4.1 mEq/L (3.5-5.1); Sodium 138 mEq/L (136-145); eGFR For African Americans > 60 (> 60); eGFR For Non-African Americans > 60 (> 60)
[2019-12-16 12:08] VITALS: BP 133/73
== END 2019-12-16 13:01 | disposition home or self-care (01) ==
LOC: 3ANU 13:50 → EMEROOARM 13:50 → SUATTDRO 19:21 → 3ANU 21:13
PROVIDERS: ADMIT Pharmacist; ATTEND Internal Medicine

== ENCOUNTER 2019-12-24 16:16 | Inpatient (IN) ==
[2019-12-24] MEDS ORDERED: *HR* Belladonna Alkaloids/Opium 30 MG RECTAL SUPPOSITORY RC PRN (16:29)
[2019-12-24] MEDS ORDERED: Naloxone 0.4 MG/ML INJ IVP PRN (16:29)
[2019-12-24] MEDS ORDERED: Ondansetron 4 MG/2 ML VIAL IVP PRN (16:29)
[2019-12-24] MEDS ORDERED: *HR* HYDROcodone/Acet 5/325 mg TABLET PO PRN (16:32)
[2019-12-24] MEDS ORDERED: Acetaminophen 325 MG TABLET PO PRN (16:33)
[2019-12-24] MEDS ORDERED: D5% in Water 1,000 ML IVC PRN (17:08)
[2019-12-24] MEDS ORDERED: *HR* Dextrose 50 % in Water (Syg) 50 ML SYRINGE IVP PRN (17:08)
[2019-12-24] MEDS ORDERED: Dextrose Gel 15 GM/37.5 ML TUBE PO PRN ×2 (17:08)
[2019-12-24 17:26] LABS: Basophils # 0.1 K/mcL (0.0-0.2); Basophils % 0.7 %; Eosinophils # 0.1 K/mcL (0.0-0.6); Hemoglobin 12.3 g/dL (12.9-16.9); Immature Granulocytes % 0.6 % (0-4); Lymphocytes # 1.9 K/mcL (0.6-4.6); Lymphocytes % 14.4 %; Mean Corpuscular HGB Conc 32.4 g/dL (31.6-35.5); Mean Corpuscular Hemoglobin 31.5 pg (28.0-33.3); Mean Corpuscular Volume 97.4 fL (83.0-100.0); Mean Platelet Volume 10.7 fL (9.4-12.4); Monocytes % 7.6 %; Neutrophils # 10.2 K/mcL (1.6-8.9); Platelet Count 231 K/mcL (140-400); Red Cell Distribution Width 14.3 % (11.5-14.5); Segmented Neutrophils % 75.7 %; White Blood Count 13.5 K/mcL (4.3-11.1)
[2019-12-24 17:44] LABS: BUN/Creatinine Ratio 15 (6-26); Blood Urea Nitrogen 15 mg/dL (8-23); Calcium 9.2 mg/dL (8.6-10.3); Carbon Dioxide 23 mEq/L (23-29); Chloride 106 mEq/L (98-107); Glucose 219 mg/dL (70-105); Osmolality,Calculated 294 (280-300); Potassium 4.1 mEq/L (3.5-5.1); Sodium 138 mEq/L (136-145); eGFR For African Americans > 60 (> 60); eGFR For Non-African Americans > 60 (> 60)
[2019-12-24] MEDS: Insulin LISPRO 300 UNITS/3 ML VIAL SQ SCH ×2 (17:53→22:08)
[2019-12-24] MEDS: 0.9 % Sodium Chloride 1,000 ML IVC SCH (17:54)
[2019-12-24] MEDS: Metoprolol XL (24 HR) Succ 50 MG TAB.ER.24H PO SCH (17:54)
[2019-12-25] MEDS: Insulin LISPRO 300 UNITS/3 ML VIAL SQ SCH ×4 (08:42→20:33)
[2019-12-25] MEDS: lisinopriL 10 MG TABLET PO SCH (08:49)
[2019-12-25] MEDS: Metoprolol XL (24 HR) Succ 50 MG TAB.ER.24H PO SCH (08:49)
[2019-12-25] MEDS: 0.9 % Sodium Chloride 1,000 ML IVC SCH (08:49)
[2019-12-25] MEDS: Nystatin Cream 15 GM TUBE TP SCH (08:50)
[2019-12-25] MEDS: Clotrimazole/Betameth Dip CRM 45 APPL/45 GM TUBE TP SCH (08:50)
[2019-12-25 10:47] LABS: Basophils % 0.3 %; Eosinophils # 0.2 K/mcL (0.0-0.6); Eosinophils % 1.5 %; Hematocrit 35.3 % (37.5-50.1); Immature Granulocytes % 0.5 % (0-4); Lymphocytes # 1.5 K/mcL (0.6-4.6); Lymphocytes % 11.8 %; Mean Corpuscular HGB Conc 31.2 g/dL (31.6-35.5); Mean Corpuscular Hemoglobin 30.6 pg (28.0-33.3); Mean Corpuscular Volume 98.3 fL (83.0-100.0); Monocytes # 0.9 K/mcL (0.0-1.3); Neutrophils # 10.2 K/mcL (1.6-8.9); Platelet Count 224 K/mcL (140-400); Red Blood Count 3.59 M/mcL (4.19-5.50); Red Cell Distribution Width 14.4 % (11.5-14.5); Segmented Neutrophils % 78.9 %; White Blood Count 12.9 K/mcL (4.3-11.1)
[2019-12-25 11:03] LABS: BUN/Creatinine Ratio 14 (6-26); Blood Urea Nitrogen 13 mg/dL (8-23); Calcium 8.8 mg/dL (8.6-10.3); Carbon Dioxide 26 mEq/L (23-29); Chloride 108 mEq/L (98-107); Glucose 190 mg/dL (70-105); Osmolality,Calculated 289 (280-300); Potassium 3.9 mEq/L (3.5-5.1); Sodium 137 mEq/L (136-145); eGFR For African Americans > 60 (> 60); eGFR For Non-African Americans > 60 (> 60)
[2019-12-25] MEDS: cefTRIAXone 1,000 MG in 0.9 % Sodium Chloride Mini Bag 100 ML IVPB SCH (13:36)
[2019-12-26] MEDS: 0.9 % Sodium Chloride 1,000 ML IVC SCH (01:53)
[2019-12-26 03:25] LABS: Basophils # 0.1 K/mcL (0.0-0.2); Basophils % 0.5 %; Eosinophils # 0.3 K/mcL (0.0-0.6); Eosinophils % 1.8 %; Hematocrit 32.8 % (37.5-50.1); Hemoglobin 10.6 g/dL (12.9-16.9); Immature Granulocytes % 0.6 % (0-4); Lymphocytes % 13.7 %; Mean Corpuscular HGB Conc 32.3 g/dL (31.6-35.5); Mean Corpuscular Hemoglobin 31.4 pg (28.0-33.3); Mean Platelet Volume 10.8 fL (9.4-12.4); Monocytes # 1.3 K/mcL (0.0-1.3); Monocytes % 9.3 %; Neutrophils # 10.6 K/mcL (1.6-8.9); Platelet Count 189 K/mcL (140-400); Red Blood Count 3.38 M/mcL (4.19-5.50); Red Cell Distribution Width 14.3 % (11.5-14.5); Segmented Neutrophils % 74.1 %; White Blood Count 14.2 K/mcL (4.3-11.1)
[2019-12-26 03:34] LABS: BUN/Creatinine Ratio 16 (6-26); Blood Urea Nitrogen 14 mg/dL (8-23); Calcium 8.7 mg/dL (8.6-10.3); Carbon Dioxide 23 mEq/L (23-29); Chloride 108 mEq/L (98-107); Glucose 137 mg/dL (70-105); Osmolality,Calculated 285 (280-300); Potassium 3.8 mEq/L (3.5-5.1); Sodium 136 mEq/L (136-145); eGFR For African Americans > 60 (> 60); eGFR For Non-African Americans > 60 (> 60)
[2019-12-26] MEDS: Insulin LISPRO 300 UNITS/3 ML VIAL SQ SCH ×4 (08:11→21:40)
[2019-12-26] MEDS: Metoprolol XL (24 HR) Succ 50 MG TAB.ER.24H PO SCH (08:26)
[2019-12-26] MEDS: lisinopriL 10 MG TABLET PO SCH (08:26)
[2019-12-26] MEDS: Clotrimazole/Betameth Dip CRM 45 APPL/45 GM TUBE TP SCH (08:27)
[2019-12-26] MEDS: Nystatin Cream 15 GM TUBE TP SCH (08:27)
[2019-12-26] MEDS: cefTRIAXone 1,000 MG in 0.9 % Sodium Chloride Mini Bag 100 ML IVPB SCH (13:35)
[2019-12-27 04:53] LABS: Basophils # 0.1 K/mcL (0.0-0.2); Basophils % 0.6 %; Eosinophils # 0.3 K/mcL (0.0-0.6); Hemoglobin 9.3 g/dL (12.9-16.9); Immature Granulocytes % 0.6 % (0-4); Lymphocytes % 14.3 %; Mean Corpuscular HGB Conc 32.1 g/dL (31.6-35.5); Mean Corpuscular Hemoglobin 31.5 pg (28.0-33.3); Mean Corpuscular Volume 98.3 fL (83.0-100.0); Monocytes # 1.1 K/mcL (0.0-1.3); Monocytes % 7.7 %; Neutrophils # 10.6 K/mcL (1.6-8.9); Platelet Count 206 K/mcL (140-400); Red Blood Count 2.95 M/mcL (4.19-5.50); Red Cell Distribution Width 14.2 % (11.5-14.5); Segmented Neutrophils % 74.8 %; White Blood Count 14.2 K/mcL (4.3-11.1)
[2019-12-27 05:40] LABS: BUN/Creatinine Ratio 13 (6-26); Blood Urea Nitrogen 13 mg/dL (8-23); Calcium 8.9 mg/dL (8.6-10.3); Carbon Dioxide 26 mEq/L (23-29); Chloride 106 mEq/L (98-107); Glucose 148 mg/dL (70-105); Osmolality,Calculated 289 (280-300); Sodium 138 mEq/L (136-145); eGFR For African Americans > 60 (> 60); eGFR For Non-African Americans > 60 (> 60)
[2019-12-27] MEDS ORDERED: Isovue-370 500 ML BOTTLE IVP ONE ×2 (06:53→07:38)
[2019-12-27 08:04] LABS: INR 1.2; Prothrombin Time 13.2 Seconds (9.4-12.1)
[2019-12-27] MEDS: Insulin LISPRO 300 UNITS/3 ML VIAL SQ SCH ×4 (11:21→20:44)
[2019-12-27] MEDS: Nystatin Cream 15 GM TUBE TP SCH (11:22)
[2019-12-27] MEDS: Clotrimazole/Betameth Dip CRM 45 APPL/45 GM TUBE TP SCH (11:22)
[2019-12-27] MEDS ORDERED: Lidocaine/EPI 1:100k 1% 50 ML VIAL ONE (11:53)
[2019-12-27] MEDS ORDERED: 0.9 % Sodium Chloride 500 ML ONE (11:53)
[2019-12-27] MEDS ORDERED: 0.9 % Sodium Chloride 1,000 ML ONE (11:59)
[2019-12-27] MEDS ORDERED: *HR* Midazolam HCl 2 MG/2 ML VIAL IVP ONE (12:00)
[2019-12-27] MEDS ORDERED: *HR* FentaNYL (PF) 100 MCG/2 ML VIAL IVP ONE (12:00)
[2019-12-27] MEDS ORDERED: Ampicillin/Sulbactam 1,500 MG in 0.9 % Sodium Chloride Mini Bag 100 ML IVPB ONE (12:10)
[2019-12-27] MEDS ORDERED: Isovue-300 150 ML INFUS..BTL IVP ONE ×2 (13:37→13:39)
[2019-12-27] MEDS: lisinopriL 10 MG TABLET PO SCH (16:19)
[2019-12-27] MEDS: Metoprolol XL (24 HR) Succ 50 MG TAB.ER.24H PO SCH (16:19)
[2019-12-27] MEDS: cefTRIAXone 1,000 MG in 0.9 % Sodium Chloride Mini Bag 100 ML IVPB SCH (16:20)
[2019-12-28 05:05] LABS: Basophils # 0.1 K/mcL (0.0-0.2); Basophils % 0.5 %; Eosinophils # 0.3 K/mcL (0.0-0.6); Hematocrit 27.4 % (37.5-50.1); Hemoglobin 8.7 g/dL (12.9-16.9); Immature Granulocytes % 0.7 % (0-4); Lymphocytes # 1.4 K/mcL (0.6-4.6); Lymphocytes % 10.8 %; Mean Corpuscular HGB Conc 31.8 g/dL (31.6-35.5); Mean Corpuscular Hemoglobin 30.7 pg (28.0-33.3); Mean Corpuscular Volume 96.8 fL (83.0-100.0); Mean Platelet Volume 10.7 fL (9.4-12.4); Monocytes # 1.1 K/mcL (0.0-1.3); Monocytes % 8.6 %; Neutrophils # 10.1 K/mcL (1.6-8.9); Platelet Count 221 K/mcL (140-400); Red Blood Count 2.83 M/mcL (4.19-5.50); Red Cell Distribution Width 14.1 % (11.5-14.5); Segmented Neutrophils % 77.4 %
[2019-12-28 05:23] LABS: BUN/Creatinine Ratio 14 (6-26); Blood Urea Nitrogen 12 mg/dL (8-23); Calcium 8.7 mg/dL (8.6-10.3); Carbon Dioxide 27 mEq/L (23-29); Chloride 101 mEq/L (98-107); Glucose 138 mg/dL (70-105); Osmolality,Calculated 282 (280-300); Sodium 135 mEq/L (136-145); eGFR For African Americans > 60 (> 60); eGFR For Non-African Americans > 60 (> 60)
[2019-12-28] MEDS: Clotrimazole/Betameth Dip CRM 45 APPL/45 GM TUBE TP SCH (08:07)
[2019-12-28] MEDS: Insulin LISPRO 300 UNITS/3 ML VIAL SQ SCH ×2 (08:07→12:24)
[2019-12-28] MEDS: Metoprolol XL (24 HR) Succ 50 MG TAB.ER.24H PO SCH (08:07)
[2019-12-28] MEDS: lisinopriL 10 MG TABLET PO SCH (08:08)
[2019-12-28] MEDS: Nystatin Cream 15 GM TUBE TP SCH (08:08)
[2019-12-28 10:16] VITALS: BP 117/62
[2019-12-28] MEDS: cefTRIAXone 1,000 MG in 0.9 % Sodium Chloride Mini Bag 100 ML IVPB SCH (12:24)
== END 2019-12-28 14:32 | disposition home or self-care (01) | DRG 700 ==
LOC: 3ANU → SUATTDRO 17:44
PROVIDERS: ADMIT Urology; ATTEND Urology

== ENCOUNTER 2020-01-31 14:09 | Inpatient (IN) ==
[2020-01-31 15:07] LABS: Mean Corpuscular HGB Conc 28.4 g/dL (31.6-35.5); Mean Corpuscular Hemoglobin 26.1 pg (28.0-33.3); Mean Corpuscular Volume 91.8 fL (83.0-100.0); Nucleated Red Blood Cells 0.7 /100 WBC (0); Platelet Count 373 K/mcL (140-400); Red Blood Count 2.07 M/mcL (4.19-5.50); Red Cell Distribution Width 16.5 % (11.5-14.5); White Blood Count 12.8 K/mcL (4.3-11.1)
[2020-01-31 15:21] LABS: Bilirubin,Urine Negative (Negative); Blood,Urine Negative (Negative); Clarity,Urine Turbid (Clear); Color,Urine Yellow (Yellow); Glucose,Urine (UA) >=1000 mg/dL (Normal); Ketones,Urine Negative (Negative); Leukocyte Esterase,Urine Small (Negative); Nitrite,Urine Positive (Negative); PH,Urine 5.5 pH Units (5.0-8.0); Protein,Urine 30 mg/dL (Neg-Trace); Specific Gravity,Urine > 1.030 (1.010-1.025); Urobilinogen,Urine Normal (Normal)
[2020-01-31 15:24] LABS: Bacteria,Urine Moderate per hpf (None-Few); Hyaline Casts,Urine None Seen per lpf (None-Few)
[2020-01-31 15:30] LABS: Hemoglobin 5.4 g/dL (12.9-16.9)
[2020-01-31 15:31] LABS: Alanine Aminotransferase 12 Units/L (7-52); Albumin 3.9 g/dL (3.5-5.7); Albumin/Globulin Ratio 1.6 (1.1-2.2); Alkaline Phosphatase 64 Units/L (34-104); Aspartate Amino Transferase 12 Units/L (13-39); BUN/Creatinine Ratio 15 (6-26); Bilirubin,Total 0.3 mg/dL (0.3-1.0); Blood Urea Nitrogen 16 mg/dL (8-23); Carbon Dioxide 24 mEq/L (23-29); Chloride 100 mEq/L (98-107); Globulin 2.4 g/dL (2.4-3.5); Glucose 121 mg/dL (70-105); Osmolality,Calculated 278 (280-300); Potassium 3.8 mEq/L (3.5-5.1); Sodium 133 mEq/L (136-145); Total Protein 6.3 g/dL (6.4-8.9); Troponin I 0.23 ng/mL (< 0.04); eGFR For African Americans > 60 (> 60); eGFR For Non-African Americans > 60 (> 60)
[2020-01-31 15:32] LABS: Anisocytosis 2+ (Not Present); Lymphocytes # 2.8 K/mcL (0.6-4.6); Platelet Estimate Normal (Normal)
[2020-01-31 15:33] LABS: Hypochromasia Present (Not Present)
[2020-01-31 15:45] LABS: Squamous Epithelial Cell,Urine Few per lpf (None-Few)
[2020-01-31] MEDS ORDERED: Pantoprazole 40 MG VIAL IVP ONE (17:04)
[2020-01-31] MEDS ORDERED: cefTRIAXone 1,000 MG in Water for inj. (sterile) 10 ML IVP ONE ×2 (17:09→18:06)
[2020-01-31] MEDS: Isovue-370 500 ML BOTTLE IVP ONE ×2 (17:14→17:15)
[2020-01-31] MEDS ORDERED: 0.9 % Sodium Chloride 250 ML ONE ×2 (17:16→22:03)
[2020-01-31] MEDS ORDERED: Ondansetron 4 MG/2 ML VIAL IVP PRN (17:58)
[2020-01-31] MEDS ORDERED: Acetaminophen 325 MG TABLET PO PRN (17:58)
[2020-01-31] MEDS ORDERED: Naloxone 0.4 MG/ML INJ IVP PRN (17:58)
[2020-01-31] MEDS ORDERED: Ringers Solution, Lactated 1,000 ML IVC ONE (18:15)
[2020-01-31 21:27] LABS: Hematocrit 21.4 % (37.5-50.1); Hemoglobin 6.3 g/dL (12.9-16.9)
[2020-02-01 04:18] LABS: Hematocrit 23.4 % (37.5-50.1); Mean Corpuscular HGB Conc 29.9 g/dL (31.6-35.5); Mean Corpuscular Hemoglobin 27.2 pg (28.0-33.3); Mean Corpuscular Volume 91.1 fL (83.0-100.0); Mean Platelet Volume 10.6 fL (9.4-12.4); Platelet Count 306 K/mcL (140-400); Red Blood Count 2.57 M/mcL (4.19-5.50); Red Cell Distribution Width 16.2 % (11.5-14.5); White Blood Count 11.7 K/mcL (4.3-11.1)
[2020-02-01 04:19] LABS: Prothrombin Time 11.7 Seconds (9.4-12.1)
[2020-02-01 04:48] LABS: BUN/Creatinine Ratio 14 (6-26); Blood Urea Nitrogen 14 mg/dL (8-23); Calcium 8.7 mg/dL (8.6-10.3); Carbon Dioxide 25 mEq/L (23-29); Chloride 105 mEq/L (98-107); Glucose 87 mg/dL (70-105); Magnesium 2.1 mg/dL (1.6-2.6); Osmolality,Calculated 282 (280-300); Potassium 3.8 mEq/L (3.5-5.1); Sodium 136 mEq/L (136-145); Troponin I 0.18 ng/mL (< 0.04); eGFR For African Americans > 60 (> 60); eGFR For Non-African Americans > 60 (> 60)
[2020-02-01 06:51] VITALS: BP 104/59
[2020-02-01] MEDS ORDERED: Metoprolol XL (24 HR) Succ 50 MG TAB.ER.24H PO SCH (09:00)
[2020-02-01] MEDS ORDERED: cefTRIAXone 1,000 MG in Water for inj. (sterile) 10 ML IVP SCH (09:00)
== END 2020-02-01 08:39 | disposition left against medical advice (07) | DRG 812 ==
LOC: 2ANU 14:09 → EMEROOARM 14:09 → 2ANU 18:50
PROVIDERS: ADMIT Internal Medicine; ATTEND Internal Medicine